=== PATIENT | male | born 1975 | race Caucasian/White ===

== ENCOUNTER 2016-11-16 21:30 | Emergency (ER) | payer OTHER ==
[2016-11-16 21:48] VITALS: BP 126/75; PULSE 83; RESP 16; TEMP 97.5; O2SAT 98
== END 2016-11-16 22:49 | disposition home or self-care (01) | DRG 563 ==
LOC: ED 21:30
DX: S46.912A Strain of unspecified muscle, fascia and tendon at shoulder and upper arm level, left arm, initial encounter (principal); W01.0XXA Fall on same level from slipping, tripping and stumbling without subsequent striking against object, initial encounter
CPT/HCPCS: 73030; 99282

== ENCOUNTER 2018-02-23 20:33 | Emergency (ER) | payer OTHER ==
[2018-02-23 21:09] VITALS: RESP 20; TEMP 98.6; O2SAT 97
[2018-02-23 23:00] VITALS: BP 145/80; PULSE 75
== END 2018-02-23 22:08 | disposition home or self-care (01) | DRG 563 ==
LOC: ED 20:33
DX: S62.304A Unspecified fracture of fourth metacarpal bone, right hand, initial encounter for closed fracture (principal); V89.2XXA Person injured in unspecified motor-vehicle accident, traffic, initial encounter
CPT/HCPCS: 29125; 73130; 99283

== ENCOUNTER 2018-02-28 13:31 | Outpatient (CLI) | payer OTHER ==
[2018-02-23 21:09] VITALS: O2SAT 97
== END 2018-02-28 13:32 | disposition home or self-care (01) | DRG 561 ==
LOC: CONVCARE 13:31
PROVIDERS: ATTEND Orthopaedic Surgery
DX: S62.306D Unspecified fracture of fifth metacarpal bone, right hand, subsequent encounter for fracture with routine healing (principal)
CPT/HCPCS: 73130

== ENCOUNTER 2018-03-14 09:25 | Outpatient (CLI) | payer OTHER ==
[2018-02-23 21:09] VITALS: O2SAT 97
== END 2018-03-14 09:26 | disposition home or self-care (01) | DRG 561 ==
LOC: CONVCARE 09:25
PROVIDERS: ATTEND Orthopaedic Surgery
DX: S62.396D Other fracture of fifth metacarpal bone, right hand, subsequent encounter for fracture with routine healing (principal); Z47.89 Encounter for other orthopedic aftercare
CPT/HCPCS: 73130

== ENCOUNTER 2018-04-04 13:02 | Outpatient (CLI) | payer OTHER ==
[2018-02-23 21:09] VITALS: O2SAT 97
== END 2018-04-04 13:03 | disposition home or self-care (01) | DRG 561 ==
LOC: CONVCARE 13:02
PROVIDERS: ATTEND Orthopaedic Surgery
DX: S62.306D Unspecified fracture of fifth metacarpal bone, right hand, subsequent encounter for fracture with routine healing (principal)
CPT/HCPCS: 73130

== ENCOUNTER 2018-04-25 09:02 | Outpatient (CLI) | payer OTHER ==
[2018-02-23 21:09] VITALS: O2SAT 97
== END 2018-04-25 09:03 | disposition home or self-care (01) | DRG 561 ==
LOC: RAD 09:02
PROVIDERS: ATTEND Orthopaedic Surgery
DX: S62.306D Unspecified fracture of fifth metacarpal bone, right hand, subsequent encounter for fracture with routine healing (principal)
CPT/HCPCS: 73130

== ENCOUNTER 2018-05-23 08:54 | Outpatient (CLI) | payer OTHER | END 2018-05-23 08:55 | disposition home or self-care (01) | LOC: CONVCARE 08:54 ==

== ENCOUNTER 2018-05-23 11:49 | Outpatient (CLI) | payer OTHER ==
[2018-02-23 21:09] VITALS: O2SAT 97
== END 2018-05-23 11:50 | disposition home or self-care (01) | DRG 561 ==
LOC: CONVCARE 11:49
PROVIDERS: ATTEND Orthopaedic Surgery
DX: S62.306D Unspecified fracture of fifth metacarpal bone, right hand, subsequent encounter for fracture with routine healing (principal)
CPT/HCPCS: 73130